=== PATIENT | female | born 1965 | race Caucasian/White ===

== ENCOUNTER 2022-03-03 13:19 | Emergency (ER) | payer MEDICARE, MEDICAID ==
[~2022-03-03] VITALS: Ht 165.1 cm; Wt 77.3 kg
[2022-03-03 13:54] VITALS: BP 122/67
== END 2022-03-03 14:53 | disposition home or self-care (01) ==
LOC: M ED 13:19
DX: F19.10 Other psychoactive substance abuse, uncomplicated (principal); Z59.02 Unsheltered homelessness